=== PATIENT | female | born 1975 | race Hispanic/Latino ===

== ENCOUNTER → 2024-05-23 | Outpatient (CLI) | payer OTHER | END | disposition home or self-care (01) | LOC: RAH 08:51 | PROVIDERS: ATTEND Internal Medicine Nephrology | DX: Z12.31 Encounter for screening mammogram for malignant neoplasm of breast (principal); M47.814 Spondylosis without myelopathy or radiculopathy, thoracic region; M54.9 Dorsalgia, unspecified | CPT/HCPCS: 72070; 77067 ==

== ENCOUNTER → 2024-07-22 | Outpatient (CLI) | payer OTHER ==
[2024-07-22 10:07] LABS: BASOPHILS # (AUTO) 0.01 K/uL (0.00-0.20); BASOPHILS % (AUTO) 0.2 % (0.0-5.0); HEMATOCRIT 42.9 % (36-48); IMMATURE GRANULOCYTE ABSOLUTE 0.02 K/uL (0-1); LYMPHOCYTES # (AUTO) 2.1 K/uL (1.0-4.8); LYMPHOCYTES % (AUTO) 41.5 % (21.0-51.0); MEAN CORPUSCULAR HEMOGLOBIN 30.4 pg (27.0-33.0); MEAN CORPUSCULAR HGB CONC 33.6 g/dL (32.0-36.0); MEAN CORPUSCULAR VOLUME 90.7 fL (79-99); MONOCYTES # (AUTO) 0.2 K/uL (0.1-1.0); MONOCYTES % (AUTO) 4.8 % (3.0-13.0); NEUTROPHILS # (AUTO) 2.5 K/uL (1.8-7.7); NEUTROPHILS % (AUTO) 51.1 % (40.0-77.0); PLATELET COUNT (AUTO) 192 K/uL (130-400); RED BLOOD CELL COUNT(AUTO) 4.73 MIL/uL (4.00-5.50); RED CELL DISTRIBUTION WIDTH 12.2 % (11.0-15.5)
[2024-07-22 10:14] LABS: HEMOGLOBIN A1C 10.5 % (4.0-6.0)
[2024-07-22 10:26] LABS: ALBUMIN 3.6 g/dL (3.5-5.0); BILIRUBIN,TOTAL 0.4 mg/dL (0.2-1.0); CREATININE 0.5 mg/dL (0.5-1.0); POTASSIUM 4.5 mmol/L (3.5-5.1); THYROID STIMULATING HORMONE 1.64 uIU/mL (0.36-3.74); TOTAL PROTEIN, SERUM 7.2 g/dL (6.0-8.3)
== END | disposition home or self-care (01) ==
LOC: LAB 09:13
PROVIDERS: ATTEND Internal Medicine Nephrology
DX: E78.5 Hyperlipidemia, unspecified (principal); R53.83 Other fatigue; E03.9 Hypothyroidism, unspecified; R73.09 Other abnormal glucose
CPT/HCPCS: 36415; 80053; 80061; 83036; 84443; 85025

== ENCOUNTER → 2024-07-31 | Outpatient (CLI) | payer OTHER ==
--- NOTE | 2024-07-31 15:03 | HMCIMG ---
MR SPINAL CANAL, THORAC WO CON REASON: DORSLGIA UNSPCIFIED COMPARISON: None TECHNIQUE: Routine thoracic imaging protocol was performed. FINDINGS: There are normal-appearing lumbar vertebral bodies. There are no compression fractures. Interspace heights are preserved. There is normal vertebral body alignment. Axial images show widely patent spinal canal and thecal sac. There is no disc herniation or focal spinal stenosis. The thoracic spinal cord appears normal. There are no focal osseous lesions. Surrounding soft tissues appear normal. IMPRESSION: 1. Normal MRI of the thoracic spine.
== END | disposition home or self-care (01) ==
LOC: RAH 13:28
PROVIDERS: ATTEND Internal Medicine Nephrology
DX: M54.9 Dorsalgia, unspecified (principal)
CPT/HCPCS: 72146

== ENCOUNTER → 2024-10-31 | Outpatient (CLI) | payer OTHER ==
[2024-10-31 09:14] LABS: BASOPHILS # (AUTO) 0.01 K/uL (0.00-0.20); BASOPHILS % (AUTO) 0.2 % (0.0-5.0); EOSINOPHILS % (AUTO) 2.1 % (0.0-8.0); HEMATOCRIT 41.2 % (36-48); IMMATURE GRANULOCYTE ABSOLUTE 0.01 K/uL (0-1); LYMPHOCYTES # (AUTO) 1.7 K/uL (1.0-4.8); LYMPHOCYTES % (AUTO) 37.2 % (21.0-51.0); MEAN CORPUSCULAR HEMOGLOBIN 29.8 pg (27.0-33.0); MEAN CORPUSCULAR HGB CONC 33.5 g/dL (32.0-36.0); MONOCYTES # (AUTO) 0.3 K/uL (0.1-1.0); MONOCYTES % (AUTO) 5.6 % (3.0-13.0); NEUTROPHILS # (AUTO) 2.6 K/uL (1.8-7.7); NEUTROPHILS % (AUTO) 54.7 % (40.0-77.0); PLATELET COUNT (AUTO) 169 K/uL (130-400); RED BLOOD CELL COUNT(AUTO) 4.63 MIL/uL (4.00-5.50); RED CELL DISTRIBUTION WIDTH 12.9 % (11.0-15.5); WHITE BLOOD COUNT (AUTO) 4.7 K/uL (4.8-10.8)
[2024-10-31 10:09] LABS: ALBUMIN 3.8 g/dL (3.5-5.0); BILIRUBIN,TOTAL 0.4 mg/dL (0.2-1.0); CREATININE 0.6 mg/dL (0.5-1.0); POTASSIUM 3.8 mmol/L (3.5-5.1); THYROID STIMULATING HORMONE 1.55 uIU/mL (0.36-3.74); TOTAL PROTEIN, SERUM 7.3 g/dL (6.0-8.3)
--- NOTE | 2024-10-31 10:38 | HMCIMG ---
Exam Type: HANDS BILAT, 3 VWS EACH Clinical Information: Bilateral hand pain Comparison: None Findings: The bone examination is unremarkable. No fractures or dislocations are seen. No radiopaque foreign bodies are noted. Soft tissues are preserved. IMPRESSION: Normal examination.
== END | disposition home or self-care (01) ==
LOC: LAB 08:29
PROVIDERS: ATTEND Internal Medicine Nephrology
DX: I10 Essential (primary) hypertension (principal); E11.65 Type 2 diabetes mellitus with hyperglycemia; I51.81 Takotsubo syndrome; E78.5 Hyperlipidemia, unspecified
CPT/HCPCS: 36415; 80053; 80061; 83036; 84443; 85025

== ENCOUNTER → 2024-12-03 | Outpatient (CLI) | payer OTHER ==
--- NOTE | 2024-12-03 12:04 | HMCIMG ---
ULTRASOUND RENAL COMPLETE INDICATION: Dorsalgia, unspecified TECHNIQUE: Routine ultrasound of the kidneys and urinary bladder with grayscale and color Doppler imaging was performed in real-time, and subsequently made available for review. COMPARISON: No prior studies available for comparison. FINDINGS: The right kidney measures 12.0 x 6.0 x 6.0 cm. No abnormal mass demonstrated. No evidence for hydronephrosis or shadowing stone. The left kidney measures 12.0 x 6.0 x 5.0 cm. No abnormal mass demonstrated. No evidence for hydronephrosis or shadowing stone. Urinary bladder appears normal. IMPRESSION: Normal sonographic appearance of the kidneys and urinary bladder.
== END | disposition home or self-care (01) ==
LOC: RAH 11:33
PROVIDERS: ATTEND Internal Medicine Nephrology
DX: M54.9 Dorsalgia, unspecified (principal)
CPT/HCPCS: 76770

== ENCOUNTER → 2025-02-09 | Outpatient (CLI) | payer OTHER ==
[2025-02-09 09:04] LABS: HEMOGLOBIN A1C 9.3 % (4.0-6.0)
[2025-02-09 09:18] LABS: ALBUMIN 3.6 g/dL (3.5-5.0); BILIRUBIN,TOTAL 0.5 mg/dL (0.2-1.0); CREATININE 0.5 mg/dL (0.5-1.0); POTASSIUM 3.9 mmol/L (3.5-5.1); THYROID STIMULATING HORMONE 2.09 uIU/mL (0.36-3.74); TOTAL PROTEIN, SERUM 7.1 g/dL (6.0-8.3)
[2025-02-09 09:23] LABS: BASOPHILS # (AUTO) 0.01 K/uL (0.00-0.20); BASOPHILS % (AUTO) 0.3 % (0.0-5.0); EOSINOPHILS # (AUTO) 0.09 K/uL (0.00-0.70); EOSINOPHILS % (AUTO) 2.3 % (0.0-8.0); HEMATOCRIT 40.6 % (36-48); IMMATURE GRANULOCYTE ABSOLUTE 0.02 K/uL (0-1); LYMPHOCYTES # (AUTO) 1.6 K/uL (1.0-4.8); LYMPHOCYTES % (AUTO) 39.3 % (21.0-51.0); MEAN CORPUSCULAR HEMOGLOBIN 30.2 pg (27.0-33.0); MEAN CORPUSCULAR HGB CONC 33.7 g/dL (32.0-36.0); MEAN CORPUSCULAR VOLUME 89.4 fL (79-99); MONOCYTES # (AUTO) 0.2 K/uL (0.1-1.0); MONOCYTES % (AUTO) 5.5 % (3.0-13.0); NEUTROPHILS # (AUTO) 2.1 K/uL (1.8-7.7); NEUTROPHILS % (AUTO) 52.1 % (40.0-77.0); PLATELET COUNT (AUTO) 132 K/uL (130-400); RED BLOOD CELL COUNT(AUTO) 4.54 MIL/uL (4.00-5.50); RED CELL DISTRIBUTION WIDTH 13.4 % (11.0-15.5)
== END | disposition home or self-care (01) ==
LOC: LAB 08:27
PROVIDERS: ATTEND Internal Medicine Nephrology
DX: I10 Essential (primary) hypertension (principal); E11.65 Type 2 diabetes mellitus with hyperglycemia; E78.5 Hyperlipidemia, unspecified
CPT/HCPCS: 36415; 80053; 80061; 83036; 84443; 85025

== ENCOUNTER → 2025-02-25 | Outpatient (CLI) | payer OTHER ==
--- NOTE | 2025-02-26 08:11 | HMCIMG ---
EXAMINATION: ULTRASOUND OF THE ABDOMEN WITH COLOR DOPPLER. CLINICAL HISTORY: Increased LFT. COMPARISON: None. TECHNIQUE: Real-time grayscale ultrasound images of the abdomen. In addition, color Doppler is medically necessary to perform in order to evaluate vascularity and blood flow. FINDINGS: Liver: Bulky in caliber, the right hepatic lobe measures 16.1 cm in the craniocaudal dimension. There is increased echogenicity of the hepatic parenchyma. There is no focal hepatic abnormality or intrahepatic biliary ductal dilatation. There is normal spectral Doppler of the main portal vein. Gallbladder: Post cholecystectomy status. Common bile duct is normal in caliber, measuring 0.47 cm. Spleen is normal in caliber and measures 9.2 x 4.3 x 3.5 cm in craniocaudal, AP and transverse dimensions respectively. No focal lesions. Pancreas: Normal in caliber and echotexture. No calcification or dilated pancreatic duct. The kidneys are normal in caliber, the right kidney measures 12.8 x 5.3 x 4.6 cm and the left kidney measures 12.4 x 5.8 x 4.9 cm in craniocaudal, AP, and transverse dimensions respectively. There is normal renal cortical thickness, and cortical echogenicity. There is no renal calculus or hydronephrosis. Visualized aspects of the aorta and inferior vena cava are unremarkable. IMPRESSION: Hepatomegaly with hepatic steatosis. Post cholecystectomy status. /[place]
== END | disposition home or self-care (01) ==
LOC: RAH 09:35
PROVIDERS: ATTEND Internal Medicine Nephrology
DX: K76.0 Fatty (change of) liver, not elsewhere classified (principal); R74.01 Elevation of levels of liver transaminase levels; R16.0 Hepatomegaly, not elsewhere classified; Z90.49 Acquired absence of other specified parts of digestive tract
CPT/HCPCS: 76700

== ENCOUNTER → 2025-02-27 | Outpatient (CLI) | payer OTHER ==
--- NOTE | 2025-03-01 19:59 | HMCIMG ---
EXAM: MR Lumbar Spine Without Intravenous Contrast. CLINICAL HISTORY: Dorsalgia. Unspecified. TECHNIQUE: Magnetic resonance images of the lumbar spine in multiple planes. CONTRAST: None. COMPARISON: None. FINDINGS: For this examination, spinal levels were labeled assuming five non-rib bearing, lumbar-type vertebrae with the inferior labeled L5. No acute fracture. Mild levoscoliosis. Normal lordotic curvature. Multilevel spondylosis is evident by marginal osteophytes and facet joint arthropathy. Disc desiccation at the L3-L4 and L4-L5 levels. Small posterior annular tear at the L4-L5 level. Normal vertebral body and disc heights. Normal marrow signal of the vertebrae. Conus medullaris terminates at the T12 level. No abnormal epidural masses. The surrounding soft tissues are unremarkable. Individual spinal levels are described as follows: T10-T11 /T/ T11-T12: Left-sided facet joint hypertrophy causing mild indentation on the posterior thecal sac. T12-L1: No disc bulge or herniation. No neural foraminal, lateral recess or spinal canal stenosis. L1-L2: No disc bulge or herniation. No neural foraminal, lateral recess or spinal canal stenosis. L2-L3: No disc bulge or herniation. No neural foraminal, lateral recess or spinal canal stenosis. L3-L4: 3 mm disc osteophyte complex bulge causing mild indentation on the anterior thecal sac. No neural foraminal or lateral recess stenosis. L4-L5: 3 mm disc osteophyte complex bulge causing mild indentation on the anterior thecal sac. No neural foraminal or lateral recess stenosis. L5-S1: 2 mm disc osteophyte complex bulge causing mild indentation on the anterior thecal sac. No neural foraminal or lateral recess stenosis. IMPRESSION: Mild levoscoliosis. Mild multilevel spondylosis. Disc desiccation at the L3-L4 and L4-L5 levels. Small posterior annular tear at the L4-L5 level. Mild indentation on the posterior thecal sac at the T10-T11 and T11-T12 levels. Mild indentation on the anterior thecal sac at the L3-L4, L4-L5, and L5-S1 levels. /[place]
== END | disposition home or self-care (01) ==
LOC: RAH 11:20
PROVIDERS: ATTEND Internal Medicine Nephrology
DX: M47.816 Spondylosis without myelopathy or radiculopathy, lumbar region (principal); M41.86 Other forms of scoliosis, lumbar region; M51.369 Other intervertebral disc degeneration, lumbar region without mention of lumbar back pain or lower extremity pain; M51.24 Other intervertebral disc displacement, thoracic region; M25.78 Osteophyte, vertebrae; M47.814 Spondylosis without myelopathy or radiculopathy, thoracic region; M54.9 Dorsalgia, unspecified
CPT/HCPCS: 72148

== ENCOUNTER → 2025-04-23 | Outpatient (CLI) | payer OTHER ==
[~2025-04-23] MED LIST: BISO-1 PO; EMPA10TA PO; ESCI-8 PO; INSU300I SQ; INSULIN LISPRO SQ; OLMESARTAN PO
[2025-04-23 11:16] LABS: IMMATURE GRANULOCYTE ABSOLUTE 0.02 K/uL (0-1); NUCLEATED RED BLOOD CELLS 0.0 % (0.0-0.19); PLATELET COUNT (AUTO) 178 K/uL (130-400); RED BLOOD CELL COUNT(AUTO) 4.88 MIL/uL (4.00-5.50); RED CELL DISTRIBUTION WIDTH 13.0 % (11.0-15.5); WHITE BLOOD COUNT (AUTO) 5.2 K/uL (4.8-10.8)
[2025-04-23 11:30] LABS: % IRON SATURATION 28.6 % (22-44); IRON, SERUM 92.0 mcg/dL (50-170)
[2025-04-23 11:40] LABS: INR 0.99 (0.85-1.15)
[2025-04-23 11:45] LABS: ASPARTATE AMINOTRANSFERASE 73.0 U/L (10-37); CREATININE 0.5 mg/dL (0.5-1.0); GAMMA GLUTAMYL TRANSFERASE 135.0 U/L (5-85); GLOMERULAR FILTR. RATE CALC 115.0 mL/min (>90); GLUCOSE,RANDOM 129.0 mg/dL (70-105); SODIUM SERUM 139.0 mmol/L (136-145); TOTAL PROTEIN, SERUM 7.5 g/dL (6.0-8.3); UREA NITROGEN, BLOOD 11.0 mg/dL (7-18)
[2025-04-23 16:46] LABS: HEPATITIS A IGM ANTIBODY Non-Reactive (Nonreactive); HEPATITIS B CORE IGM ANTIBODY Non-Reactive (Negative)
[2025-04-24 15:14] LABS: ALPHA-1-ANTITRYPSIN 139 mg/dL (101-187)
== END | disposition home or self-care (01) ==
LOC: LAB 10:32
PROVIDERS: ATTEND Internal Medicine
DX: R94.5 Abnormal results of liver function studies (principal)
CPT/HCPCS: 36415; 80053; 80074; 82103; 82390; 82728; 82784; 82787; 82977; 83516; 83540; 83550; 85025; 85610; 86015; 86038; 86215; 86231; 86235; 86364; 86376; 86381

== ENCOUNTER 2025-04-28 06:42 | Day surgery (SDC) | payer OTHER ==
[~2025-04-28] VITALS: Ht 157.5 cm; Wt 92.5 kg
[2025-04-28] VITALS (11 sets, daily range): BP systolic 129–154; BP diastolic 79–98; PULSE 66–89; RESP 15–16; TEMP 97.1–98.5
[2025-04-28] MEDS ORDERED: EMPA10TA PO (07:25)
[2025-04-28] MEDS ORDERED: INSULIN LISPRO SQ (07:25)
[2025-04-28] MEDS ORDERED: INSU300I SQ (07:25)
[2025-04-28] MEDS ORDERED: BISO-1 PO (07:25)
[2025-04-28] MEDS ORDERED: OLMESARTAN PO (07:25)
[2025-04-28] MEDS ORDERED: ESCI-8 PO (07:25)
[2025-04-28] MEDS: 0.9%NACL 1000ML 1,000 ML IV ONE (07:27)
--- NOTE | 2025-04-28 10:18 | NUR ---
BOTH PT AND SPOUSE GIVEN VERBAL AND WRITTEN DISCHARGE INSTRUCTIONS. IV REMOVED SITE ASYMPTOMATIC
== END 2025-04-28 10:40 | disposition home or self-care (01) ==
LOC: DAH 06:42 → ENDO 06:42
PROVIDERS: ATTEND Internal Medicine
DX: Z12.11 Encounter for screening for malignant neoplasm of colon (principal); R10.11 Right upper quadrant pain; K64.0 First degree hemorrhoids; I10 Essential (primary) hypertension; K64.4 Residual hemorrhoidal skin tags; K29.50 Unspecified chronic gastritis without bleeding; K44.9 Diaphragmatic hernia without obstruction or gangrene; E11.9 Type 2 diabetes mellitus without complications; K76.0 Fatty (change of) liver, not elsewhere classified; E66.9 Obesity, unspecified; Z90.49 Acquired absence of other specified parts of digestive tract; Z90.710 Acquired absence of both cervix and uterus; Z98.890 Other specified postprocedural states; Z79.82 Long term (current) use of aspirin; Z79.899 Other long term (current) drug therapy; Z68.37 Body mass index [BMI] 37.0-37.9, adult
CPT/HCPCS: 43239; 45378; 82948 ×2; J7030; J2704 ×2; A4620; A4215; J3490

== ENCOUNTER → 2025-05-21 | Outpatient (CLI) | payer OTHER ==
[2025-05-21 09:32] LABS: IMMATURE GRANULOCYTE ABSOLUTE 0.02 K/uL (0-1); NUCLEATED RED BLOOD CELLS 0.0 % (0.0-0.19); PLATELET COUNT (AUTO) 148 K/uL (130-400); RED BLOOD CELL COUNT(AUTO) 4.47 MIL/uL (4.00-5.50); RED CELL DISTRIBUTION WIDTH 13.2 % (11.0-15.5); WHITE BLOOD COUNT (AUTO) 4.1 K/uL (4.8-10.8)
[2025-05-21 10:04] LABS: ASPARTATE AMINOTRANSFERASE 43.0 U/L (10-37); CREATININE 0.6 mg/dL (0.5-1.0); GLOMERULAR FILTR. RATE CALC 110.0 mL/min (>90); GLUCOSE,RANDOM 172.0 mg/dL (70-105); LDL DIRECT 85.0 mg/dL (0-99); SODIUM SERUM 142.0 mmol/L (136-145); TOTAL PROTEIN, SERUM 7.0 g/dL (6.0-8.3); UREA NITROGEN, BLOOD 8.0 mg/dL (7-18)
[2025-05-21 10:12] LABS: ERYTHROCYTE SEDIMENTATION RATE 6 MM/HR (0-20)
[2025-05-22 07:14] LABS: RHEUMATOID ARTHRITIS FACTOR <10.0 IU/mL (<14.0)
== END | disposition home or self-care (01) ==
LOC: LAB 08:47
PROVIDERS: ATTEND Internal Medicine Nephrology
DX: I10 Essential (primary) hypertension (principal); E11.65 Type 2 diabetes mellitus with hyperglycemia; E78.5 Hyperlipidemia, unspecified; R53.83 Other fatigue; D72.819 Decreased white blood cell count, unspecified; M25.50 Pain in unspecified joint
CPT/HCPCS: 36415; 80053; 80061; 83036; 84443; 85025; 85651; 86038; 86200; 86215; 86235; 86431

== ENCOUNTER → 2025-06-09 | Outpatient (CLI) | payer OTHER | END | disposition home or self-care (01) | LOC: LAB 09:29 | PROVIDERS: ATTEND Internal Medicine Gastroenterology | DX: K76.0 Fatty (change of) liver, not elsewhere classified (principal) | CPT/HCPCS: 36415; 82172; 82247; 82465; 82947; 82977; 83010; 83883; 84450; 84460; 84478 ==

== ENCOUNTER → 2025-06-09 | Outpatient (CLI) | payer OTHER ==
--- NOTE | 2025-06-10 10:47 | HMCIMG ---
DIGITAL BILATERAL SCREENING MAMMOGRAM Technique: The digital mammographic examination of both breasts in craniocaudal and mediolateral oblique views along with CAD was obtained. History: This is a 49 years year-old female 6, para5 Ab1. Patient has no family history of breast cancer. Patient has no complaint Reference:Prior mammogram from 05/23/2024 is available.. Breast composition: Breast composition B: There are scattered areas of fibroglandular density. Finding: The digital mammographic examination of both breasts in craniocaudal and mediolateral oblique view along with CAD demonstrates both breasts to BE mildly dense with mostly involutional fatty changes.. There is no evidence of any dendritic mass, cluster microcalcification or architectural distortion. The retromammary fat appears to be normal. IMPRESSION: Unchanged from prior mammography. NO RADIOGRAPHIC EVIDENCE OF MALIGNANT CHANGES. WE WOULD RECOMMEND ANNUAL FOLLOW UP WITH TOMOSYNTHESIS UNLESS OTHERWISE CLINICALLY INDICATED. FINAL ASSESSMENT: ACR: BI-RAD - 1. Negative: Nothing to comment upon. Management: Routine mammography screening. Likelihood of Cancer: Essentially 0% likelihood of malignancy. NOTE: IF A WORK-UP OF THIS PATIENT LEADS TO A BIOPSY, PLEASE FORWARD A COPY OF THE PATHOLOGY REPORT TO OUR OFFICE REQUIRED BY [employer] MAY 20, 1994. A NEGATIVE MAMMOGRAM SHOULD NOT PRECLUDE BIOPSY OF A CLINICALLY PALPABLE SUSPICIOUS MASS, 10% OF BREAST CANCERS ARE MAMMOGRAPHICALLY OCCULT. THIS MAMMOGRAPHY FACILITY IS FULLY ACCREDITED BY THE [employer]OD AND [employer]UG [employer] (FDA). THANK YOU FOR THIS REFERRAL.
== END | disposition home or self-care (01) ==
LOC: RAH 08:33
PROVIDERS: ATTEND Internal Medicine Nephrology
DX: Z12.31 Encounter for screening mammogram for malignant neoplasm of breast (principal); R92.313 Mammographic fatty tissue density, bilateral breasts
CPT/HCPCS: 77067